=== PATIENT | female | born 1975 | race African-American/Black ===

== ENCOUNTER 2021-09-30 12:48 | Inpatient (IN) | payer BC ==
[2021-09-30 13:55] LABS: #Eosinphils 0.1 10x3/uL (0.0-0.5); #Monocytes 0.3 10x3/uL (0.0-1.1); #Neutrophils 3.5 10x3/uL (1.5-8.4); %Basophils 0.4 % (0.0-2.0); %Eosinophils 0.9 % (0.0-6.0); %Lymphocytes 27.4 % (18.0-47.0); %Monocytes 5.9 % (0.0-10.0); %Neutrophils 65.2 % (40.0-75.0); Hemoglobin 13.3 g/dL (12.0-15.5); Mean Corpuscular HGB CONC 32.8 g/dL (32.0-36.0); Mean Corpuscular Hemoglobin 25.7 pg (27.0-33.0); Mean Corpuscular Volume 78.4 fl (81.6-98.3); Mean Platelet Volume 10.4 fl (7.4-10.4); Platelet Count 316 10x3/uL (150-450); RBC Distribution Width 13.1 % (11.5-14.5); Red Blood Cell (RBC) Count 5.18 10x6/uL (3.90-5.03); White Blood Cell (WBC) Count 5.3 10x3/uL (3.5-10.5)
[2021-09-30] MEDS ORDERED: Ondansetron PF 4 MG/2 ML Vial ONE (14:00)
[2021-09-30 14:09] LABS: ALT (SGPT) 18 U/L (8-55); AST (SGOT) 11 U/L (5-34); Albumin 4.3 g/dL (3.5-5.0); Alkaline Phosphatase 150 U/L (40-110); Anion Gap 17 mmol/L (10-20); BUN (Urea Nitrogen) 12 mg/dL (7.0-18.7); Bilirubin, Total 0.9 mg/dL (0.2-1.2); Calc. Creatinine Clearance 0 mL/min (70-130); Calcium 9.9 mg/dL (7.8-10.44); Carbon Dioxide 23 mmol/L (22-29); Chloride 86 mmol/L (98-107); Globulin 3.6 g/dL (2.4-3.5); Lipase 45 U/L (8-78); Potassium 4.5 mmol/L (3.5-5.1); Protein, Total 7.9 g/dL (6.0-8.3); Sodium 121 mmol/L (136-145)
[2021-09-30 14:12] LABS: Bilirubin Neg (Negative); Blood, Urine Negative (Negative); Clarity Clear (Clear); Glucose, Urine (Dipstick) >=1000 mg/dL (Negative); Ketone, Urine Negative (Negative); Leukocyte Negative (Negative); Nitrite Negative (Negative); Protein, Urine (Dipstick) Negative (Neg-Trace); Specific Gravity, Urine 1.005 (1.002-1.036); Urobilinogen Normal mg/dL (Less than 2)
[2021-09-30 14:34] LABS: Glucose 1061 mg/dL (70-105)
[2021-09-30] MEDS ORDERED: Insulin Regular 300 UNITS/3 ML VIAL ONE (15:38)
[2021-09-30] MEDS ORDERED: INSULIN REGULAR IN 0.9 % NACL 100 UNIT/100 ML BAG ONE (15:38)
[2021-09-30] MEDS ORDERED: Electrolyte Replacement Protocol 1 EACH IVPB PRN (16:14)
[2021-09-30] MEDS ORDERED: Dextrose 5 %-0.45 % NaCl 1,000 ML IV PRN (16:14)
[2021-09-30] MEDS ORDERED: NS 0.9% w/ 20 MEQ KCL 1,000 ML IV PRN ×2 (16:14)
[2021-09-30] MEDS ORDERED: Sodium Chloride 0.9% 1,000 ML IV PRN ×4 (16:14)
[2021-09-30] MEDS ORDERED: Dextrose 50% Abboject 50 ML SYRINGE SLOW IVP PRN (16:15)
[2021-09-30] MEDS ORDERED: HumaLOG 300 UNITS/3 ML VIAL SC PRN (16:15)
[2021-09-30] MEDS ORDERED: Dextrose 5% in Water 1,000 ML IV PRN (16:15)
[2021-09-30 16:56] LABS: Anion Gap 17 mmol/L (10-20); BUN (Urea Nitrogen) 11 mg/dL (7.0-18.7); Calc. Creatinine Clearance 0 mL/min (70-130); Calcium 10.3 mg/dL (7.8-10.44); Carbon Dioxide 22 mmol/L (22-29); Chloride 102 mmol/L (98-107); Glucose 430 mg/dL (70-105); Magnesium 2.2 mg/dL (1.6-2.6); Phosphorus 3.1 mg/dL (2.3-4.7); Potassium 3.7 mmol/L (3.5-5.1); Sodium 137 mmol/L (136-145)
[2021-09-30] MEDS: Sodium Chloride 0.9% 1,000 ML IV SCH ×2 (18:00→19:02)
[2021-09-30] MEDS ORDERED: INSULIN REGULAR IN 0.9 % NACL 100 UNIT in Premix Bag 1 BAG IVPB SCH (19:00)
[2021-09-30 19:23] VITALS: BMI 41.5
[2021-09-30 20:37] LABS: Anion Gap 16 mmol/L (10-20); BUN (Urea Nitrogen) 10 mg/dL (7.0-18.7); Calc. Creatinine Clearance 163 mL/min (70-130); Carbon Dioxide 21 mmol/L (22-29); Chloride 109 mmol/L (98-107); Glucose 166 mg/dL (70-105); Potassium 3.8 mmol/L (3.5-5.1); Sodium 142 mmol/L (136-145)
[2021-09-30] MEDS: D5 1/2 NS w/20 mEq KCL 1,000 ML IV PRN (21:13)
[2021-09-30 22:49] LABS: SARS-CoV-2 NAA Rapid Test Not Detected (NotDetected)
[2021-10-01 00:57] LABS: Anion Gap 13 mmol/L (10-20); BUN (Urea Nitrogen) 9 mg/dL (7.0-18.7); Calc. Creatinine Clearance 153 mL/min (70-130); Calcium 8.6 mg/dL (7.8-10.44); Carbon Dioxide 24 mmol/L (22-29); Chloride 107 mmol/L (98-107); Glucose 322 mg/dL (70-105); Potassium 3.8 mmol/L (3.5-5.1); Sodium 140 mmol/L (136-145)
[2021-10-01] MEDS: D5 1/2 NS w/20 mEq KCL 1,000 ML IV PRN ×4 (01:11→15:16)
[2021-10-01 04:39] LABS: Anion Gap 12 mmol/L (10-20); BUN (Urea Nitrogen) 9 mg/dL (7.0-18.7); Calc. Creatinine Clearance 169 mL/min (70-130); Calcium 8.7 mg/dL (7.8-10.44); Carbon Dioxide 23 mmol/L (22-29); Chloride 111 mmol/L (98-107); Glucose 160 mg/dL (70-105); Magnesium 2.1 mg/dL (1.6-2.6); Phosphorus 2.1 mg/dL (2.3-4.7); Potassium 3.8 mmol/L (3.5-5.1); Sodium 142 mmol/L (136-145)
[2021-10-01 04:56] LABS: #Basophils 0.1 10x3/uL (0.0-0.2); #Eosinphils 0.2 10x3/uL (0.0-0.5); #Monocytes 0.5 10x3/uL (0.0-1.1); %Basophils 0.7 % (0.0-2.0); %Eosinophils 3.2 % (0.0-6.0); %Lymphocytes 48.9 % (18.0-47.0); %Monocytes 7.1 % (0.0-10.0); Hemoglobin 11.8 g/dL (12.0-15.5); Mean Corpuscular HGB CONC 34.8 g/dL (32.0-36.0); Mean Corpuscular Hemoglobin 26.1 pg (27.0-33.0); Mean Platelet Volume 9.7 fl (7.4-10.4); Platelet Count 295 10x3/uL (150-450); Red Blood Cell (RBC) Count 4.52 10x6/uL (3.90-5.03); White Blood Cell (WBC) Count 7.6 10x3/uL (3.5-10.5)
[2021-10-01] MEDS ORDERED: Acetaminophen 325 MG TAB PO PRN (07:51)
[2021-10-01 12:05] LABS: Hemoglobin A1c 12.3 % (4.0-6.0)
[2021-10-01] MEDS ORDERED: Amlodipine 5 MG TAB PO SCH (17:15)
[2021-10-01] MEDS ORDERED: NPH, Human Insulin Isophane 300 UNIT/3 ML VIAL SC SCH (21:00)
[2021-10-01] MEDS ORDERED: Dextrose 5% in Water 1,000 ML IV PRN (21:51)
[2021-10-01] MEDS ORDERED: Dextrose 50% Abboject 50 ML SYRINGE SLOW IVP PRN (21:51)
[2021-10-01] MEDS: HumaLOG 300 UNITS/3 ML VIAL SC PRN (22:19)
[2021-10-02 04:38] LABS: Anion Gap 12 mmol/L (10-20); BUN (Urea Nitrogen) 10 mg/dL (7.0-18.7); Calc. Creatinine Clearance 146 mL/min (70-130); Calcium 9.2 mg/dL (7.8-10.44); Carbon Dioxide 23 mmol/L (22-29); Cardiac Risk 4.8 (Less than 4.5); Chloride 107 mmol/L (98-107); Cholesterol 196 mg/dl (< 200 Desired); Glucose 236 mg/dL (70-105); HDL Cholesterol 41 mg/dL (>60 Neg Risk); LDL Cholesterol, Calculated 129 mg/dL; Magnesium 1.9 mg/dL (1.6-2.6); Potassium 3.9 mmol/L (3.5-5.1); Sodium 138 mmol/L (136-145); Triglycerides 130 mg/dL (Less than 150)
[2021-10-02 04:46] LABS: Hemoglobin 12.3 g/dL (12.0-15.5); Mean Corpuscular HGB CONC 33.6 g/dL (32.0-36.0); Mean Corpuscular Hemoglobin 25.7 pg (27.0-33.0); Mean Corpuscular Volume 76.6 fl (81.6-98.3); Mean Platelet Volume 9.9 fl (7.4-10.4); Platelet Count 282 10x3/uL (150-450); RBC Distribution Width 13.5 % (11.5-14.5); Red Blood Cell (RBC) Count 4.78 10x6/uL (3.90-5.03); White Blood Cell (WBC) Count 8.3 10x3/uL (3.5-10.5)
[2021-10-02 06:15] LABS: MDiff Complete? YES
[2021-10-02 06:19] LABS: Eosinophils 2 % (0-10); Lymphocytes 50 % (21-51); Monocytes 7 % (0-10); Neutrophil 39 % (42-75); Reactive Lymphocytes 2 % (0-10)
[2021-10-02 06:22] LABS: Platelet Morphology Comment Appears Adequate; RBC Morphology Normal
[2021-10-02] MEDS: HumaLOG 300 UNITS/3 ML VIAL SC PRN ×3 (06:41→20:58)
[2021-10-02] MEDS: NPH, Human Insulin Isophane 300 UNIT/3 ML VIAL SC SCH ×2 (08:24→20:58)
[2021-10-02] MEDS: Amlodipine 5 MG TAB PO SCH (08:24)
[2021-10-03 04:56] LABS: #Basophils 0.1 10x3/uL (0.0-0.2); #Eosinphils 0.2 10x3/uL (0.0-0.5); #Monocytes 0.4 10x3/uL (0.0-1.1); %Basophils 0.7 % (0.0-2.0); %Eosinophils 2.5 % (0.0-6.0); %Lymphocytes 48.2 % (18.0-47.0); %Monocytes 5.9 % (0.0-10.0); %Neutrophils 42.4 % (40.0-75.0); Hemoglobin 11.5 g/dL (12.0-15.5); Mean Corpuscular HGB CONC 33.8 g/dL (32.0-36.0); Mean Corpuscular Hemoglobin 25.9 pg (27.0-33.0); Mean Corpuscular Volume 76.6 fl (81.6-98.3); Mean Platelet Volume 10.8 fl (7.4-10.4); RBC Distribution Width 13.4 % (11.5-14.5); Red Blood Cell (RBC) Count 4.44 10x6/uL (3.90-5.03); White Blood Cell (WBC) Count 7.1 10x3/uL (3.5-10.5)
[2021-10-03 04:58] LABS: Platelet Count 246 10x3/uL (150-450)
[2021-10-03 05:06] LABS: Anion Gap 14 mmol/L (10-20); BUN (Urea Nitrogen) 15 mg/dL (7.0-18.7); Calc. Creatinine Clearance 174 mL/min (70-130); Calcium 9.3 mg/dL (7.8-10.44); Carbon Dioxide 21 mmol/L (22-29); Chloride 105 mmol/L (98-107); Glucose 231 mg/dL (70-105); Magnesium 1.7 mg/dL (1.6-2.6); Potassium 3.4 mmol/L (3.5-5.1); Sodium 137 mmol/L (136-145)
[2021-10-03 05:31] LABS: Platelet Morphology Comment Appears Adequate; RBC Morphology Normal
[2021-10-03] MEDS: HumaLOG 300 UNITS/3 ML VIAL SC PRN (06:47)
[2021-10-03] MEDS ORDERED: Potassium Chloride 20 MEQ TAB PO SCH (07:15)
[2021-10-03] MEDS: NPH, Human Insulin Isophane 300 UNIT/3 ML VIAL SC SCH (09:17)
[2021-10-03] MEDS: Amlodipine 5 MG TAB PO SCH (09:17)
[2021-10-03] MEDS ORDERED: Magnesium 2 GM/50 ML(in water) 2 GM in Premix Bag 1 BAG IVPB SCH (10:30)
[2021-10-03 12:02] VITALS: BP 173/81; TEMP 97.2
== END 2021-10-03 14:58 | disposition home or self-care (01) | DRG 639 ==
LOC: CSHERS 12:48 → CSHIMCU 16:31 → CSHTELE 10-02 14:45
PROVIDERS: ADMIT Family Medicine; ATTEND Family Medicine
DX: E11.00 Type 2 diabetes mellitus with hyperosmolarity without nonketotic hyperglycemic-hyperosmolar coma (NKHHC) (principal); D64.9 Anemia, unspecified; I10 Essential (primary) hypertension; Z20.822 Contact with and (suspected) exposure to COVID-19; Z79.4 Long term (current) use of insulin; Z79.899 Other long term (current) drug therapy; Z90.710 Acquired absence of both cervix and uterus; Z87.891 Personal history of nicotine dependence; Z83.3 Family history of diabetes mellitus
CPT/HCPCS: 36415; 36416; 80048; 80053; 80061; 81003; 83036; 83690; 83735; 83930; 84100; 84443; 85025; 96361; 96365; 96366; 96375; 96376; J1815; J2405; J3475; J3480; J7050